=== PATIENT | female | born 1990 | race American Indian/Alaskan Native ===

== ENCOUNTER 2020-11-15 14:50 | Outpatient (CLI) | payer MEDICAID ==
[2020-11-15 15:24] VITALS: BP 109/67
[2020-11-15] MEDS ORDERED: LACTATED RINGERS 500 ML IV ONE (16:00)
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
--- NOTE | 2020-11-15 18:15 | Ultrasound Report ---
ULTRASOUND OBSTETRIC LIMITED ULTRASOUND BIOPHYSICAL PROFILE INDICATION / CLINICAL INFORMATION: BPP, MERCY AND R/O ABRUPTION. COMPARISON: None available. FINDINGS: BREATHING MOVEMENT = 2 GROSS BODY MOVEMENT = 2 TONE = 2 QUALITATIVE AMNIOTIC FLUID VOLUME = 2 TOTAL BIOPHYSICAL SCORE = 8/8 AMNIOTIC FLUID INDEX (cm) = visually normal with largest pocket measuring 3.3 cm PRESENTATION: Cephalic. HEART RATE (beats per minute): 153 ADDITIONAL FINDINGS: No placental abruption IMPRESSION: 1. Biophysical Score = 8/8 Signer Name: Alexi Norman MD Signed: 11/15/2020 6:11 PM Workstation Name: [id number]
--- NOTE | 2020-11-17 07:11 | Ultrasound Report ---
Obstetrical ultrasound limited INDICATION: well-being IMPRESSION: Single living intrauterine in the cephalic position. The placenta is anterior a nd grade 0. Signer Name: Chandler Arthur MD Signed: 11/17/2020 7:06 AM Workstation Name: [id number]
== END 2020-11-15 20:25 | disposition home or self-care (01) ==
LOC: TRG 14:50 → APU 14:52 → TRG 20:25
PROVIDERS: ATTEND Obstetrics & Gynecology
DX: O26.893 Other specified pregnancy related conditions, third trimester (principal); O47.03 False labor before 37 completed weeks of gestation, third trimester; Z3A.30 30 weeks gestation of pregnancy; V49.60XA Unspecified car occupant injured in collision with unspecified motor vehicles in traffic accident, initial encounter; Y93.89 Activity, other specified; Y92.89 Other specified places as the place of occurrence of the external cause; Y99.8 Other external cause status
CPT/HCPCS: 59025; 76815; 76819; 85460; 86850; 86900; 86901; 96360; J7120